=== PATIENT | male | born 1960 | race African-American/Black ===

== ENCOUNTER 2023-11-02 22:11 | Emergency (ER) | payer OTHER ==
[2023-11-02 22:58] LABS: Absolute Eosinophils 0.1 K/uL (0-0.5); Absolute Lymphocytes (CBC) 2.1 K/uL (0.7-4.9); Absolute Monocytes 0.4 K/uL (0.1-1.3); Absolute Neutrophil 2.4 K/uL (1.8-8.0); Basophils % 0.8 % (0-1.3); Eosinophils % 2.8 % (0-4.4); Hematocrit 36.1 % (39.6-49.0); Hemoglobin 12.1 g/dL (13.6-17.9); MCH 31.5 pg (27.0-35.0); MCHC 33.5 g/dL (32.0-36.0); MCV 94.2 fL (80-100); MPV 9.2 fL (7.6-11.3); Monocytes % 8.5 % (3.3-12.3); Neutrophils % 46.9 % (41.7-73.7); Platelets 207 thou/uL (152-406); RBC Red Blood Cell Count 3.83 M/uL (4.33-5.43); Red Cell Distribution Width 14.1 % (12.1-15.2)
[2023-11-02 23:08] LABS: Albumin 3.8 g/dL (3.4-5.0); Albumin/Globulin Ratio 0.9 (1.1-1.8); Anion Gap 9.7 mEq/L (5.0-15.0); Bilirubin Total 0.6 mg/dL (0.2-1.0); Globulin 4.2 g/dL (2.3-3.5); Potassium 3.7 mEq/L (3.5-5.1)
[2023-11-03] MEDS ORDERED: KETOROLAC 30 MG/ML INJ ONE (00:23)
[2023-11-03] MEDS ORDERED: NA CHLORIDE 0.9% 100 ML ONE (00:24)
[2023-11-03] MEDS ORDERED: METHOCARBAMOL 1,000 MG/10 ML VIAL ONE (00:24)
[2023-11-03 01:03] LABS: Renal Epithelial <5 /HPF (None Seen); Specific Gravity 1.021 (1.005-1.030); Sqamous Epithelial <5 /HPF (None Seen); Urine Bacteria <20 /HPF (<20); Urine Bilirubin NEGATIVE (Negative); Urine Blood Negative (Negative); Urine Clarity Turbid (Clear); Urine Color Light-Yellow (Yellow); Urine Culture Reflex Order REFLEXED; Urine Glucose NEGATIVE (Negative); Urine Ketones NEGATIVE (Negative); Urine Microscopic Reflex YN ORDER UMIC; Urine Mucus Slight /HPF (None Seen); Urine Nitrite NEGATIVE (Negative); Urine Protein TRACE (Negative); Urine RBC <5 /HPF (None Seen); Urine Urobilinogen Normal (Normal); Urine WBC 20-50 /HPF (<5); Urine pH 6.5 (5.0-7.0)
--- NOTE | 2023-11-03 01:35 | EDPHYS ---
Physician Documentation [facility] Name: Luther Reed Age: 63 yrs Sex: Male : 1960 Arrival Date: 11/02/2023 Time: 22:11 Bed 20 Private MD: ED Physician Miguel Brown HPI: 11/01 22:28 This 63 yrs old Male presents to ER via Unassigned with complaints of RT SIDED LOWER kb BACK PAIN/INJURY. 22:28 Pt is a 63 year old male who presents for mid right lateral abd pain that started 3-4 kb days ago. Denies nausea, vomiting, diarrhea, fever, urinary symptoms. . Historical: - Allergies: 23:53 No Known Allergies; bm8 - Home Meds: 23:53 None [Active]; bm8 - PMHx: 23:53 None; bm8 - PSHx: 23:53 right bunion; bm8 - Immunization history:: Adult Immunizations up to date. - Infectious Disease History:: Denies. - Social history:: Patient/guardian denies using street drugs, IV drugs, tobacco products, Smoking status: Patient denies any tobacco usage or history of. ROS: 22:30 Constitutional: As per HPI kb Exam: 22:30 Constitutional: This is a well developed, well nourished patient who is awake, alert, kb and in no acute distress. Head/Face: Normocephalic, atraumatic. ENT: Moist Mucous membranes Cardiovascular: Regular rate Respiratory: Respirations even and unlabored. No increased work of breathing. Talking in full sentences Skin: Warm, dry with normal turgor. Normal color. MS/ Extremity: Pulses equal, no cyanosis. Neurovascular intact. Full, normal range of motion. Neuro: Awake and alert, GCS 15, oriented to person, place, time, and situation. Moves all extremities. Normal gait. 22:30 Abdomen/GI: Inspection: abdomen appears normal, Bowel sounds: normal, Palpation: soft, in all quadrants, mild abdominal tenderness, in the anterior aspect of right lateral abdomen, Vital Signs: 22:31 BP 164 / 92; Pulse 65; Resp 16; Temp 97.7; Pulse Ox 100% ; Weight 102.06 kg; Height 6 vc1 ft. 1 in. ; Pain 7/10; 23:53 BP 142 / 93; Pulse 50; Resp 20; Temp 97.7; Pulse Ox 100% ; Pain 5/10; bm8 11/02 01:07 BP 140 / 91; Pulse 48; Resp 17; Temp 97.8; Pulse Ox 100% ; Pain 4/10; bm8 01:47 BP 132 / 90; Pulse 60; Resp 18; Temp 97.7; Pulse Ox 100% ; Pain 4/10; bm8 11/01 22:31 Body Mass Index 29.68 (102.06 kg, 185.42 cm) vc1 11/01 22:31 Pain Scale: Adult vc1 23:53 Pain Scale: Adult bm8 11/02 01:07 Pain Scale: Adult bm8 01:47 Pain Scale: Adult bm8 [place] Coma Score: 11/01 23:53 Eye Response: spontaneous(4). Motor Response: obeys commands(6). Verbal Response: bm8 oriented(5). Total: 15. 11/02 01:07 Eye Response: spontaneous(4). Motor Response: obeys commands(6). Verbal Response: bm8 oriented(5). Total: 15. MDM: 11/01 22:23 Patient medically screened. kb 22:30 Data reviewed: vital signs, nurses notes. 11/01 22:29 Order name: CBC with Diff; Complete Time: 23:07 kb 11/02 00:07 Interpretation: Normal except: RBC 3.83; HGB 12.1; HCT 36.1. 11/01 22:29 Order name: CMP; Complete Time: 23:08 kb 11/02 00:10 Interpretation: Normal except: GFR 70; GLOB 4.2; A/G 0.9. 11/01 22:29 Order name: Lipase; Complete Time: 23:08 kb 11/02 00:10 Interpretation: Reviewed. 11/01 22:29 Order name: Urinalysis w/ reflexes; Complete Time: 01:26 kb 11/02 01:16 Order name: Urine Culture EDIA 11/01 22:29 Order name: CT Abd/Pelvis - Without Contrast 11/01 22:29 Order name: IV Saline Lock; Complete Time: 22:41 kb 11/01 22:29 Order name: Labs collected and sent; Complete Time: 22:41 kb Administered Medications: 11/02 00:25 Drug: Ketorolac IVP 15 mg IVP once Route: IVP; Site: right forearm; bm8 01:09 Follow up: Response: No adverse reaction bm8 00:25 Drug: Methocarbamol IVPB 1 grams IVPB once over 1 hrs; (mix in NS 100 mL) Route: IVPB; bm8 Infused Over: 1 hrs; Site: right forearm; 01:09 Follow up: Response: No adverse reaction; IV Status: Completed infusion; IV Intake: bm8 100ml 01:30 Drug: Rocephin IV 1 grams IV at calculated rate once; Given slow IV push per pharmacy bm8 instructions Route: IV; Rate: calculated rate; Site: right forearm; 01:47 Follow up: Response: No adverse reaction; IV Status: Completed infusion; IV Intake: [id number] 01:50 Not Given (not given pt discharged prior to order being placedd): [id number] mg bm8 PO once Disposition Summary: 11/03/23 01:34 Discharge Ordered Notes: Location: Home cp Problem: new cp Symptoms: have improved cp Condition: Stable cp Diagnosis - Dorsalgia, unspecified cp - Abdominal pain, unspecified cp - UTI/ Urinary tract infection, site not specified cp Followup: cp - With: Private Physician - When: 2 - 3 days - Reason: Recheck today's complaints Discharge Instructions: - Discharge Summary Sheet cp - Abdominal Pain, Adult cp - Acute Back Pain, Adult cp Forms: - Medication Reconciliation Form cp - Antibiotic Education cp - Prescription Opioid Use cp - Patient Portal Instructions cp - Leadership Thank You Letter cp Prescriptions: - Cipro 500 mg Oral Tablet - take 1 tablet ORAL route every 12 hours for 7 days; 14 tablet; Refills: 0, cp Product Selection Permitted - Diclofenac Sodium 75 mg Oral tablet, delayed release (enteric coated) - take 1 tablet ORAL route 2 times per day; 20 tablet; Refills: 0, Product cp Selection Permitted - methocarbamol 750 mg Oral tablet - take 1 tablet ORAL route 3 times per day As needed; 20 tablet; Refills: 0, cp Product Selection Permitted Signatures: Dispatcher [employer] Rosario Martinez, HEENA LUCASP-Miguel Pena PA PA cp McDonald, Brad, RN RN bm8 Corrections: (The following items were deleted from the chart) 11/01 22:30 22:30 CBC+H.LAB.BRZ ordered. ED ED 22:30 22:30 COMPREHENSIVE METABOLIC PANEL+C.LAB.BRZ ordered. EDMS EDMS 22:30 LIPASE+C.LAB.BRZ ordered. EDMS EDMS 22:30 Urinalysis+U.LAB.BRZ ordered. EDMS EDMS 11/02 00:10 00:08 Normal except: GFR 70. cp cp
--- NOTE | 2023-11-03 01:35 | ER ---
Nurse's Notes [facility] Name: Luther Reed Age: 63 yrs Sex: Male : 1960 Arrival Date: 11/02/2023 Time: 22:11 Bed 20 Private MD: Diagnosis: Dorsalgia, unspecified;Abdominal pain, unspecified;UTI/ Urinary tract infection, site not specified Presentation: 11/01 22:31 Chief complaint: Patient states: side pain. Coronavirus screen: Client denies travel vc1 out of the [place] in the last 14 days. At this time, the client does not indicate any symptoms associated with coronavirus-19. Ebola Screen: Patient negative for fever greater than or equal to 101.5 degrees Fahrenheit, and additional compatible Ebola Virus Disease symptoms Patient denies exposure to infectious person. Patient denies travel to an Ebola-affected area in the 21 days before illness onset. No symptoms or risks identified at this time. Initial Sepsis Screen: Does the patient meet any 2 criteria? No. Patient's initial sepsis screen is negative. Does the patient have a suspected source of infection? No. Patient's initial sepsis screen is negative. Risk Assessment: Do you want to hurt yourself or someone else? Patient reports no desire to harm self or others. Onset of symptoms was November 02, 2023. 22:31 Method Of Arrival: Ambulatory vc1 22:31 Acuity: MONTRELL 3 vc1 Triage Assessment: 22:35 General: Appears in no apparent distress. uncomfortable, Behavior is calm, cooperative, vc1 appropriate for age. Pain: Complains of pain in posterior aspect of right lateral abdomen Pain does not radiate. Pain currently is 7 out of 10 on a pain scale. Quality of pain is described as crampy, dull, Pain began suddenly, 2-3 days ago. Alleviated by nothing. : Denies burning with urination, urinary frequency. Historical: - Allergies: 23:53 No Known Allergies; bm8 - Home Meds: 23:53 None [Active]; bm8 - PMHx: 23:53 None; bm8 - PSHx: 23:53 right bunion; bm8 - Immunization history:: Adult Immunizations up to date. - Infectious Disease History:: Denies. - Social history:: Patient/guardian denies using street drugs, IV drugs, tobacco products, Smoking status: Patient denies any tobacco usage or history of. Screenin:37 [facility] ED Fall Risk Assessment (Adult) History of falling in the last 3 months, vc1 including since admission No falls in past 3 months (0 pts) Confusion or Disorientation No (0 pts) Intoxicated or Sedated No (0 pts) Impaired Gait No (0 pts) Mobility Assist Device Used No (0 pt) Altered Elimination No (0 pt) Score/Fall Risk Level 0 - 2 = Low Risk Oriented to surroundings, Maintained a safe environment, Educated pt \T\ family on fall prevention, incl call for assistance when getting out of bed. Abuse screen: Denies threats or abuse. Nutritional screening: No deficits noted. Tuberculosis screening: No symptoms or risk factors identified. Assessment: 23:51 Reassessment: Patient appears in no apparent distress at this time. Patient and/or bm8 family updated on plan of care and expected duration. Pain level reassessed. Patient is alert, oriented x 3, equal unlabored respirations, skin warm/dry/pink. Pain: Complains of pain in anterior aspect of right lateral abdomen and posterior aspect of right lateral abdomen Pain does not radiate. Pain currently is 5 out of 10 on a pain scale. Quality of pain is described as sharp. Neuro: No deficits noted. Level of Consciousness is awake, alert, obeys commands, Oriented to person, place, time, situation, Appropriate for age. Cardiovascular: No deficits noted. Denies chest pain, Capillary refill < 3 seconds Patient's skin is warm and dry. Respiratory: No deficits noted. Airway is patent Respiratory effort is even, unlabored, Respiratory pattern is regular, symmetrical. : Reports right sided flank pain for a few days, no change in pain level since arrival. 11/02 01:07 Reassessment: Patient appears in no apparent distress at this time. Patient and/or bm8 family updated on plan of care and expected duration. Pain level reassessed. Patient is alert, oriented x 3, equal unlabored respirations, skin warm/dry/pink. pain still there but better than when arrived Patient states symptoms have improved. Vital Signs: 11/01 22:31 BP 164 / 92; Pulse 65; Resp 16; Temp 97.7; Pulse Ox 100% ; Weight 102.06 kg; Height 6 vc1 ft. 1 in. ; Pain 7/10; 23:53 BP 142 / 93; Pulse 50; Resp 20; Temp 97.7; Pulse Ox 100% ; Pain 5/10; bm8 11/02 01:07 BP 140 / 91; Pulse 48; Resp 17; Temp 97.8; Pulse Ox 100% ; Pain 4/10; bm8 01:47 BP 132 / 90; Pulse 60; Resp 18; Temp 97.7; Pulse Ox 100% ; Pain 4/10; bm8 11/01 22:31 Body Mass Index 29.68 (102.06 kg, 185.42 cm) vc1 11/01 22:31 Pain Scale: Adult vc1 23:53 Pain Scale: Adult bm8 11/02 01:07 Pain Scale: Adult bm8 01:47 Pain Scale: Adult bm8 [place] Coma Score: 11/01 23:53 Eye Response: spontaneous(4). Motor Response: obeys commands(6). Verbal Response: bm8 oriented(5). Total: 15. 11/02 01:07 Eye Response: spontaneous(4). Motor Response: obeys commands(6). Verbal Response: bm8 oriented(5). Total: 15. ED Course: 11/01 22:17 Patient arrived in ED. [email or web address] 22:23 Rosario Huitron FNP-C is PHCP. kb 22:23 Miguel Brown MD is Attending Physician. kb 22:34 Triage completed. vc1 22:34 Arm band placed on left wrist. vc1 22:41 Sky Bowens, RN is Primary Nurse. bm8 22:41 No provider procedures requiring assistance completed. Initial lab(s) drawn, by kisha brink sent to lab. Inserted saline lock: 20 gauge in right forearm, using aseptic technique. Blood collected. 23:09 PHCP role handed off by Rosario Huitron FNP-C kb 23:09 Miguel Love PA is PHCP. kb 23:26 CT Abd/Pelvis - Without Contrast In Process Unspecified. EDMS 23:53 Patient has correct armband on for positive identification. Bed in low position. Call bm8 light in reach. Side rails up X 1. Pulse ox on. NIBP on. Door closed. Noise minimized. Visitors limited. Warm blanket given. Verbal reassurance given. 11/02 01:07 Awaiting lab results. bm8 01:47 Provided Education on: post er care. bm8 01:47 IV discontinued, intact, bleeding controlled, No redness/swelling at site. Pressure bm8 dressing applied. Administered Medications: 00:25 Drug: Ketorolac IVP 15 mg IVP once Route: IVP; Site: right forearm; bm8 01:09 Follow up: Response: No adverse reaction bm8 00:25 Drug: Methocarbamol IVPB 1 grams IVPB once over 1 hrs; (mix in NS 100 mL) Route: IVPB; bm8 Infused Over: 1 hrs; Site: right forearm; 01:09 Follow up: Response: No adverse reaction; IV Status: Completed infusion; IV Intake: bm8 100ml 01:30 Drug: Rocephin IV 1 grams IV at calculated rate once; Given slow IV push per pharmacy bm8 instructions Route: IV; Rate: calculated rate; Site: right forearm; 01:47 Follow up: Response: No adverse reaction; IV Status: Completed infusion; IV Intake: [id number] 01:50 Not Given (not given pt discharged prior to order being placedd): [id number] mg bm8 PO once Medication: 11/01 22:38 VIS not applicable for this client. vc1 Intake: 11/02 01:09 IV: 100ml; Total: 100ml. bm8 01:47 IV: 10ml; Total: 110ml. bm8 Outcome: 01:34 Discharge ordered by MD. cp 01:47 Discharged to home ambulatory, bm8 01:47 Condition: stable 01:47 Discharge instructions given to patient, Instructed on discharge instructions, follow up and referral plans. no drinking with medication, medication usage, safety practices, Demonstrated understanding of instructions, follow-up care, medications, Prescriptions given X 3, 01:49 Patient left the ED. bm8 Signatures: Dispatcher [employer] EDMS Rosario Huitron, HEENA LUCASP-Miguel Pena PA PA cp Jeffries, Jennifer [email or web address] Lucita Valerio, RN RN vc1 Sky Bowens RN RN bm8
[2023-11-03] MEDS ORDERED: CEFTRIAXONE 1000 MG/VIAL ONE (01:38)
[2023-11-03 01:55] VITALS: TEMP 97.7; O2SAT 100
[2023-11-03 02:28] VITALS: BP 132/90
--- NOTE | 2023-11-03 11:23 | RAD REPORT ---
EXAM DESCRIPTION: Abdomen Pelvis Wo Contrast RadLex: CT ABDOMEN PELVIS WITHOUT IV CONTRAST CLINICAL HISTORY: 63 years Male; ABD PAIN; NO CONTRAST Bed Name: 20 TECHNIQUE: CT of the abdomen and pelvis without contrast. All CT scans at this facility use dose modulation, iterative reconstruction, and/or weight based dosi ng when appropriate to reduce radiation dose to as low as reasonably achievable. COMPARISON: None. FINDINGS: Lower thorax: Lung bases are clear Abdomen: Stomach: Within normal limits Liver: No focal lesions. No intrahepatic ductal distention. Gallbladder: Nondistended Pancreas: Within normal limits Spleen: Within normal limits Right kidney: No hydronephrosis. No renal or ureteral calculi. Left kidney: No hydronephrosis. No renal or ureteral calculi. Adrenal glands: Within normal limits Vascular structures: Mild atherosclerosis of the abdominal aorta and major branches. Lymph nodes: No lymphadenopathy by size criteria Pelvis: Small bowel: No significant distention. Appendix: Not visualized. No pericecal inflammatory changes. Colon: No distention or acute pericolonic edema. Peritoneum: No free intraperitoneal fluid or air. Bones: No acute bone findings. Grade 1 anterolisthesis at L5-S1. Degenerative changes of the visualiz ed spine. Bladder: Diffuse wall thickening, could be secondary to underdistention. Reproductive organs: No acute findings. Note that evaluation of the bowel and solid organs is somewhat limited due to lack of intravenous and oral contrast. IMPRESSION: 1. No acute abdominopelvic findings. 2. Diffuse bladder wall thickening, could be secondary to underdistention. Correlate with urinalysi s for evidence of cystitis. Electronically signed by: Dhiraj Mccarthy MD 11/02/2023 11:41 PM CDT Due to temporary technical issues with the PACS/Fluency reporting system, reports are being signed by the in house radiologist without review as a courtesy to ensure prompt reporting. The interpreting r adiologist is fully responsible for the content of the report.
== END 2023-11-03 01:49 | disposition home or self-care (01) ==
LOC: ER 22:11
DX: N39.0 Urinary tract infection, site not specified (principal); R10.9 Unspecified abdominal pain
CPT/HCPCS: 87088; 85025; 81001; 87086; 36415; 83690; 80053; 74176; J2800; J0696